=== PATIENT | male | born 1960 | race Caucasian/White ===

== ENCOUNTER 2018-11-03 08:46 | Inpatient (IN) | payer BC ==
[~2018-11-03] VITALS: Ht 170.2 cm; Wt 100.0 kg
[2018-11-03] VITALS (8 sets, daily range): BP systolic 136–165; BP diastolic 74–103; BMI 34.5
[2018-11-03] MEDS ORDERED: PEPCID AC20 MG PO (09:02)
[2018-11-03] MEDS ORDERED: TENORMIN100 MG PO (09:02)
[2018-11-03] MEDS ORDERED: TENORMIN50 MG PO (09:02)
[2018-11-03 09:51] LABS: BASOPHILS 0.3 % (0-2); EOSINOPHILS 2.7 % (0-7); HEMATOCRIT 39.4 % (42.0-54.0); HEMOGLOBIN 13.9 g/dL (13.5-17.5); IMMATURE GRANULOCYTES 0.2 % (0-5); LYMPHOCYTES 14.2 % (15-50); MCH 30.8 pg (26.0-34.0); MCHC 35.3 g/dL (31.0-37.0); MCV 87.4 fL (80.0-100.0); MEAN PLATELET VOLUME 9.3 fL (7.4-10.4); MONOCYTES 7.5 % (2-11); NEUTROPHILS 75.1 % (40-80); PLATELET COUNT 190 10x3/uL (130-400); RBC 4.51 10x6/uL (4.20-6.10); RDW 12.7 % (11.5-14.5); WBC 10.1 10x3/uL (4.8-10.8)
[2018-11-03 10:09] LABS: ALBUMIN 3.5 g/dL (3.4-5.0); ALKALINE PHOSPHATASE 53 U/L (46-116); ALT (SGPT) 48 U/L (10-68); BILIRUBIN - TOTAL 1.22 mg/dL (0.2-1.3); CALC OSMOLALITY 276 mosm/kg (275-300); CALCIUM 8.5 mg/dL (8.5-10.1); CARBON DIOXIDE 24.5 mmol/L (21.0-32.0); CHLORIDE - SERUM 105 mmol/L (98-107); CREATININE - SERUM 0.9 mg/dL (0.6-1.3); GLUCOSE 121 mg/dL (74-106); POTASSIUM - SERUM 3.6 mmol/L (3.5-5.1); PROTEIN - SERUM 7.1 g/dL (6.4-8.2); SODIUM 139 mmol/L (136-145); UREA NITROGEN 8 mg/dL (7-18); eGFR NON AFRICAN AMERICAN > 90 mL/min (90-120)
--- NOTE | 2018-11-03 11:00 | NUR ---
STROKE BAND [id number]
--- NOTE | 2018-11-03 12:01 | NUR ---
PT STABLE, CALL LIGHT WIHTIN REACH, DENIES NEEDS, WILL CONTINUE TO MONITOR. AT BEDSIDE.
--- NOTE | 2018-11-03 13:01 | NUR ---
PT GONE TO MRI AT THIS TIME. PT STABLE AT TIME OF TRANSPORT.
--- NOTE | 2018-11-03 15:02 | NUR ---
ATTEMPTED TO CALL REPORT NURSE WILL CALL BACK. PT STABLE, CALL LIGHT WITHIN REACH, WILL CONTINUE TO MONITOR.
--- NOTE | 2018-11-03 15:30 | NUR ---
PT REPORT CALLED TO [facility], NURSE ROOM 1207. PT STABLE AT TRANSPORT TO FLOOR.
[2018-11-03] MEDS ORDERED: BENADRYL25 MG PO (16:06)
--- NOTE | 2018-11-03 17:25 | NUR ---
NOTIFIED DR. AGEE ABOUT PT BEING IN ROOM 1207.
--- NOTE | 2018-11-03 18:44 | NUR ---
RECEIVED PT TO ROOM 1207 VIA WHEELCHAIR, ACCOMPANIED BY . PT A/O X4, RESP EVEN AND NONLABORED ON RA. RT HAND IV INFUSING NS AT 100. REDNESS AND SWELLING NOTED TO LT THIGH. ORIENTED PT TO ROOM AND CALL LIGHT. WILL ASSESS PT AND START PLAN OF CARE.
--- NOTE | 2018-11-03 19:00 | NUR ---
PT ALERT AND ORIENTED WHEN ENTERING THE ROOM. PT HAS SWOLLEN REDDENDED AREA ON INSIDE OF THIGH. WARM AND TENDER TO TOUCH. PT RATES PAIN 3/10 AT THIS TIME. REQUESTS PAIN MEDICINE AT 9 WITH OTHER MEDICATIONS. PT HAS CALL LIGHT IN REACH.
[2018-11-04] VITALS: BP 135/78
--- NOTE | 2018-11-04 03:34 | NUR ---
PT ASLEEP, RESP EVEN AND UNLABORED. ROOM AIR. BEDLOW AND CALL LIGHT IN REACH. NO S/S OF DISTRESS. WILL CPOC
[2018-11-04 04:00] VITALS: BP 124/70
[2018-11-04 06:34] LABS: BASOPHILS 0.2 % (0-2); HEMATOCRIT 38.1 % (42.0-54.0); HEMOGLOBIN 13.1 g/dL (13.5-17.5); IMMATURE GRANULOCYTES 0.2 % (0-5); LYMPHOCYTES 18.9 % (15-50); MCH 30.3 pg (26.0-34.0); MCHC 34.4 g/dL (31.0-37.0); MCV 88.2 fL (80.0-100.0); MEAN PLATELET VOLUME 9.5 fL (7.4-10.4); MONOCYTES 7.6 % (2-11); NEUTROPHILS 70.1 % (40-80); PLATELET COUNT 200 10x3/uL (130-400); RBC 4.32 10x6/uL (4.20-6.10); RDW 12.8 % (11.5-14.5); WBC 8.1 10x3/uL (4.8-10.8)
[2018-11-04 06:47] LABS: CALC OSMOLALITY 276 mosm/kg (275-300); CALCIUM 8.6 mg/dL (8.5-10.1); CARBON DIOXIDE 25.4 mmol/L (21.0-32.0); CHLORIDE - SERUM 105 mmol/L (98-107); GLUCOSE 105 mg/dL (74-106); SODIUM 139 mmol/L (136-145); UREA NITROGEN 9 mg/dL (7-18)
[2018-11-04 06:50] LABS: CREATININE - SERUM 0.6 mg/dL (0.6-1.3); POTASSIUM - SERUM 4.2 mmol/L (3.5-5.1); eGFR NON AFRICAN AMERICAN > 90 mL/min (90-120)
--- NOTE | 2018-11-04 07:40 | NUR ---
ASSESSMENT COMPLETE. IV TO R HAND PATENT. REDNESS NOTED TO LEFT INNER THIGH. REDNESS HASN'T EXTENDED BEYOND MARKING. BUDDER SHOWING SR 68 PER TECH. DENIES ANY NEEDS AT THIS TIME.
[2018-11-04 08:23] VITALS: BP 142/74
--- NOTE | 2018-11-04 09:48 | NUR ---
TAKING A SHOWER WITH ASSISTANCE OF .
[2018-11-04 11:17] VITALS: Ht 170.2 cm; Wt 100.0 kg
--- NOTE | 2018-11-04 12:40 | NUR ---
COMPLAINING OF ANXIETY AND PAIN. MORPHINE 4 MG GIVEN SLOW IVP.
[2018-11-04 13:08] VITALS: BP 144/77
[2018-11-04 14:05] LABS: APPEARANCE CLEAR (CLEAR); BACTERIA FEW /hpf (NONE SEEN); BILIRUBIN NEGATIVE (NEGATIVE); COLOR YELLOW (YELLOW); EPITHELIAL CELLS OCC /hpf (0-5); GLUCOSE NEGATIVE (NEGATIVE); KETONE NEGATIVE (NEGATIVE); MUCUS <1+ /lpf (NONE SEEN); NITRITE NEGATIVE (NEGATIVE); PROTEIN NEGATIVE (NEGATIVE); RED CELLS - URINE RARE /hpf (0-5); SPECIFIC GRAVITY 1.015 (1.005-1.020)
--- NOTE | 2018-11-04 15:00 | NUR ---
DENIES ANY NEEDS AT THIS TIME.
--- NOTE | 2018-11-04 16:53 | MORECARE ---
CASE MANAGEMENT DISCHARGE SUMMARY PATIENT: CARMINA BELLA UNIT: [id number] ADM DATE: 11/03/18 AGE: 58 : 58 SEX: M ROOM/BED: D.1207 AUTHOR: PARRISH LANCE PHYSICIAN: REFERRING PHYSICIAN: ABY BROWN MD DATE OF SERVICE: 11/04/18 Discharge Plan Patient Name: CARMINA BELL[facility] [facility] 1960 Planned Disposition: Home Anticipated Discharge Date: 11/05/18 Discharge Date: Expected LOS: 2 Initial Reviewer: [email or web address] Initial Review Date: 11/04/2018 Generated: 11/04/18 5:53 pm DCPIA - Discharge Planning Initial Assessment Updated by [email or web address]: Bridget Ram on 11/04/18 4:52 pm * Is the patient Alert and Oriented? Yes * PCP NONE YET * Pharm[facility] * Preadmission Environment Home with Family * ADLs Independent * List name and contact numbers for known caregivers / representatives who currently or will assist patient after discharge: PATI, , [phone] * Additional services required to return to the preadmission environment? No * Can the patient safely return to the preadmission environment? Yes * Has this patient been hospitalized within the prior 30 days at any hospital? No Patient Name: CARMINA BELLA Page 12309 at 1653 All edits/amendments must be made on the electronic document DICTATION DATE: 11/04/181652 ICE CREAM FREEZER ASSISTANT: ANSELMO 11/04/181652 RPT#: [id number] DC DATE: STATUS: ADM IN [facility] [address] [place] [address] END OF REPORT
--- NOTE | 2018-11-04 17:06 | MORECARE ---
CASE MANAGEMENT DISCHARGE SUMMARY PATIENT: CARMINA BELLA UNIT: [id number] ADM DATE: 11/03/18 AGE: 58 : 58 SEX: M ROOM/BED: D.1207 AUTHOR: PARRISH LANCE PHYSICIAN: REFERRING PHYSICIAN: ABY BROWN MD DATE OF SERVICE: 11/04/18 Discharge Plan Patient Name: CARMINA BELLA Facility: [facility]:[place] : 1960 Planned Disposition: Home Anticipated Discharge Date: 11/05/18 Discharge Date: Expected LOS: 2 Initial Reviewer: [email or web address] Initial Review Date: 11/04/2018 Generated: 11/04/18 6:06 pm Comments DCP- Discharge Planning Updated by [email or web address]: Bridget Ram on 11/04/18 3:[address] Patient Name: CARMINA BELLA Admission Status: ER Accout number: [id number] Admission Date: 11-03-2018 : 1960 Admission Diagnosis:CELLULITIS, UNSPECIFIED Attending: ABY BROWN Current LOS: 1 Anticipated DC Date: 11-05-2018 Planned Disposition: Home Primary Insurance: [employer] OUT OF STATE Discharge Planning Comments: CM MET WITH PATIENT, PATIENT STATES PLANS TO DC TOMORROW. STATES WILL GO HOME WITH . DENIES NEEDS. CM WILL FOLLOW AND ASSIST NEEDED WITH DC PLANNING/NEEDS. Audiology Doctor: Bridget Ram DCPIA - Discharge Planning Initial Assessment Updated by [email or web address]: Bridget Ram on 11/04/18 4:52 pm * Is the patient Alert and Oriented? Yes * PCP NONE YET * Pharmacy [facility] * Preadmission Environment Home with Family * ADLs Independent * List name and contact numbers for known caregivers / representatives who currently or will assist patient after discharge: PATI, , [phone] * Additional services required to return to the preadmission environment? No * Can the patient safely return to the preadmission environment? Yes * Has this patient been hospitalized within the prior 30 days at any hospital? No Last DP export: 11/04/18 3:53 p Patient Name: CARMINA BELLA Page [id number] at 1706 All edits/amendments must be made on the electronic document DICTATION DATE: 11/04/181705 DATA COMMUNICATIONS TECHNICIAN: ANSELMO 11/04/181705 RPT#: [id number] DC DATE: STATUS: ADM IN [facility] [address] [place] [address] END OF REPORT
--- NOTE | 2018-11-04 18:30 | NUR ---
NO CHANGES NOTED AT THIS TIME.
--- NOTE | 2018-11-04 19:36 | NUR ---
RECIEVED UP IN BED WITH EYES OPEN AND TV ON. ALERT AND ORIENTED X4. UP AD AMANDA TO B/R. TELEMETRY IN PLACE. DENIES ANY NEEDS AT THIS TIME. WILL CONT. POC.
[2018-11-04 20:00] VITALS: BP 137/72
[2018-11-05 00:30] VITALS: BP 137/73
[2018-11-05 06:42] LABS: CALC OSMOLALITY 277 mosm/kg (275-300); CALCIUM 8.7 mg/dL (8.5-10.1); CARBON DIOXIDE 24.1 mmol/L (21.0-32.0); CHLORIDE - SERUM 105 mmol/L (98-107); CREATININE - SERUM 0.8 mg/dL (0.6-1.3); GLUCOSE 103 mg/dL (74-106); SODIUM 140 mmol/L (136-145); UREA NITROGEN 11 mg/dL (7-18); eGFR NON AFRICAN AMERICAN > 90 mL/min (90-120)
[2018-11-05 06:45] LABS: BASOPHILS 0.4 % (0-2); EOSINOPHILS 5.4 % (0-7); HEMATOCRIT 37.9 % (42.0-54.0); HEMOGLOBIN 13.1 g/dL (13.5-17.5); IMMATURE GRANULOCYTES 0.3 % (0-5); MCH 30.3 pg (26.0-34.0); MCHC 34.6 g/dL (31.0-37.0); MCV 87.7 fL (80.0-100.0); MEAN PLATELET VOLUME 9.6 fL (7.4-10.4); MONOCYTES 7.8 % (2-11); NEUTROPHILS 60.1 % (40-80); PLATELET COUNT 225 10x3/uL (130-400); RBC 4.32 10x6/uL (4.20-6.10); RDW 12.5 % (11.5-14.5); WBC 7.1 10x3/uL (4.8-10.8)
[2018-11-05] MEDS ORDERED: CLEOCIN HCL300 MG PO (07:51)
[2018-11-05 08:03] VITALS: BP 136/72
--- NOTE | 2018-11-05 08:07 | NUR ---
PT IS SITTING UP IN BED THIS AM EATING BREAKFAST. AT BEDSIDE. RESPIRATIONS EVEN AND UNLABORED, NO S/S OF DISTRESS NOTED. LCTA. VOICES THAT HE IS WAITING FOR THE DOCTOR TO PUT IN A DISCHARGE. REDNESS TO LEFT INNER THIGH, MARKINGS SHOWING THAT REDNESS HAS GONE DOWN. PT C/O NUMBNESS IN BUTTOCKS FROM LAYING IN BED, ENCOURAGED TO GET UP OUT OF BED AND WALK. DENIES NEEDS AT THIS TIME. BED LOW AND LOCKED, SR UP X2, CL IN EASY REACH. WILL CONTINUE TO MONITOR.
--- NOTE | 2018-11-05 10:00 | NUR ---
RESTING QUIETLY IN BED. DENIES NEEDS. ANXIOUS TO GO HOME.
--- NOTE | 2018-11-05 11:06 | NUR ---
PT DISCHARGE INFORMATION PROVIDED FOR PT AND FAMILY, ALLOWED TIME FOR QUESTIONS. QUESTIONS ANSWERED. PT AND FAMILY VERBALIZED UNDERSTANDING AND SIGNED PAPERWORK. PT DISCHARGE EDUCATION PROVIDED UPON DISCHARGE. IV REMOVED, TIP INTACT. METALLOGRAPHIC TECHNICIAN TAKEN OFF PT. VOICES NO FURTHER NEEDS. PT DISCHARGED AT 1106.
--- NOTE | 2018-11-05 14:06 | MORECARE ---
CASE MANAGEMENT DISCHARGE SUMMARY PATIENT: CARMINA BELLA UNIT: [id number] ADM DATE: 11/03/18 AGE: 58 : 58 SEX: M ROOM/BED: D.1207 AUTHOR: PARRISH LANCE PHYSICIAN: REFERRING PHYSICIAN: ABY BROWN MD DATE OF SERVICE: 11/05/18 Discharge Plan Patient Name: CARMINA BELLA Facility: [facility]:[place] : 1960 Planned Disposition: Home Anticipated Discharge Date: 11/05/18 Discharge Date: 11/05/2018 Expected LOS: 2 Initial Reviewer: [email or web address] Initial Review Date: 11/04/2018 Generated: 11/05/18 3:06 pm Comments DCP- Discharge Planning Updated by [email or web address]: Bridget Ram on 11/04/18 3:[address] Patient Name: CARMINA BELLA Admission Status: ER Accout number: [id number] Admission Date: 11-03-2018 : 1960 Admission Diagnosis:CELLULITIS, UNSPECIFIED Attending: ABY BROWN Current LOS: 1 Anticipated DC Date: 11-05-2018 Planned Disposition: Home Primary Insurance: [employer] OUT OF STATE Discharge Planning Comments: CM MET WITH PATIENT, PATIENT STATES PLANS TO DC TOMORROW. STATES WILL GO HOME WITH . DENIES NEEDS. CM WILL FOLLOW AND ASSIST NEEDED WITH DC PLANNING/NEEDS. Mud Mill Tender: Bridget Ram DCPIA - Discharge Planning Initial Assessment Updated by [email or web address]: Bridget Ram on 11/04/18 4:52 pm * Is the patient Alert and Oriented? Yes * PCP NONE YET * Pharmacy [facility] * Preadmission Environment Home with Family * ADLs Independent * List name and contact numbers for known caregivers / representatives who currently or will assist patient after discharge: PATI, , [phone] * Additional services required to return to the preadmission environment? No * Can the patient safely return to the preadmission environment? Yes * Has this patient been hospitalized within the prior 30 days at any hospital? No Last DP export: 11/04/18 4:06 p Patient Name: CARMINA BELLA Page 39180 at 1406 All edits/amendments must be made on the electronic document DICTATION DATE: 11/05/181405 PLAYGROUND WORKER: ANSELMO 11/05/181405 RPT#: [id number] DC DATE:11/05/18 STATUS: DIS IN [facility] [address] [facility] [address] END OF REPORT
== END 2018-11-05 11:07 | disposition home or self-care (01) | DRG 603 ==
LOC: D.ER 08:46 → D.M3 14:48
PROVIDERS: Family Medicine; ADMIT Internal Medicine Nephrology
DX: L03.116 Cellulitis of left lower limb (principal); D64.9 Anemia, unspecified; R55 Syncope and collapse; I10 Essential (primary) hypertension; K21.9 Gastro-esophageal reflux disease without esophagitis; G89.29 Other chronic pain; M54.9 Dorsalgia, unspecified